=== PATIENT | female | born 1995 | race Two or more races ===

== ENCOUNTER 2021-07-25 10:44 | Emergency (ER) | payer OTHER ==
[~2021-07-25] VITALS: Ht 165.1 cm; Wt 76.4 kg
[2021-07-25 11:46] VITALS: BP 135/76
== END 2021-07-25 13:44 | disposition home or self-care (01) ==
LOC: EMS 10:44
DX: Z76.89 Persons encountering health services in other specified circumstances (principal)
CPT/HCPCS: 99281; Z7502